=== PATIENT | female | born 1995 | race Caucasian/White ===

== ENCOUNTER 2019-11-17 18:00 | Emergency (ER) | payer SELFPAY ==
[~2019-11-17] VITALS: Ht 165.1 cm; Wt 122.5 kg
--- NOTE | 2019-11-17 18:10 | NUR ---
PATIENT TO ER #5 AND PLACED ON HOSPITAL NURSE LIAISON, SAO2, ABP WITH STAT EKG
--- NOTE | 2019-11-17 18:25 | NUR ---
Patient presented to ER C/O left chestwall pain. Patient A&Ox4, skin pink & warm, afebrile, ambulatory to ER, pain 7, denies N/V/D.Patient states she has left chest/axilla pain 7/10x days and pt report decreased appetite today.
[2019-11-17] MEDS ORDERED: KETOROLAC TROMETHAMINE 60 MG/2 ML VIAL IM ONE (18:30)
[2019-11-17 18:36] VITALS: BP_SYST 159
--- NOTE | 2019-11-17 18:57 | NUR ---
JANICE Butcher examining patient.
--- NOTE | 2019-11-17 19:07 | NUR ---
Report to Tammy LY
--- NOTE | 2019-11-17 19:56 | NUR ---
XRAY AT BEDSIDE.
[2019-11-17 20:13] VITALS: BP_SYST 147
--- NOTE | 2019-11-17 20:13 | NUR ---
Patient given written and verbal discharge instructions and verbalizes understanding. ER MD discussed with patient the results and treatment provided. Patient in stable condition. ID arm band removed. Rx of motrin given. Patient educated on pain management and to follow up with PMD. Pain Scale 4/10. Opportunity for questions provided and answered. Medication side effect fact sheet provided.
== END 2019-11-17 20:13 | disposition home or self-care (01) ==
LOC: SED 18:00
DX: N64.4 Mastodynia (principal); R03.0 Elevated blood-pressure reading, without diagnosis of hypertension
CPT/HCPCS: 71045; 81025; 93005; 96372; 99283; J1885